=== PATIENT | male | born 1965 | race African-American/Black ===

== ENCOUNTER 2020-09-28 04:58 | Emergency (ER) | payer MEDICAID ==
[~2020-09-28] VITALS: Ht 182.9 cm; Wt 99.8 kg
[2020-09-28] MEDS ORDERED: HYDROcodone-ACET 10/325MG TAB PO ONE (08:00)
[2020-09-28 08:25] VITALS: BP 157/98
== END 2020-09-28 09:08 | disposition home or self-care (01) ==
LOC: ER 04:58
DX: S22.41XA Multiple fractures of ribs, right side, initial encounter for closed fracture (principal); I10 Essential (primary) hypertension; F17.210 Nicotine dependence, cigarettes, uncomplicated; K59.00 Constipation, unspecified; X58.XXXA Exposure to other specified factors, initial encounter; Y93.89 Activity, other specified; Y92.89 Other specified places as the place of occurrence of the external cause; Y99.8 Other external cause status
CPT/HCPCS: 71101; 71250; 74176

== ENCOUNTER 2021-06-21 12:35 | Inpatient (IN) | payer MEDICAID ==
[~2021-06-21] VITALS: Ht 182.9 cm; Wt 114.2 kg
[2021-06-21] MEDS ORDERED: SODIUM CHLORIDE 0.9% 1,000 ML IVB ONE (13:45)
[2021-06-21 14:08] LABS: Basophils # (auto) 0 10 ^3/uL (0-0.2); Eosinophils # (auto) 0 10 ^3/uL (0-0.8); Eosinophils % (auto) 0.1 % (0.0-7.0); Hemoglobin 13.6 g/dL (13.5-17.5); Lymphocytes # (auto) 0.9 10 ^3/uL (0.4-5.4); Monocytes # (auto) 0.4 10 ^3/uL (0-1.3); Monocytes % (auto) 5.1 % (0.0-12.0); Neutrophils # (auto) 6.9 10 ^3/uL (1.6-8.6); Nucleated Red Blood Cells % 0.7 %; White Blood Cell 8.2 10^3/uL (4.4-10.8)
[2021-06-21 14:10] LABS: Basophils % (auto) 0.5 % (0.0-2.0); Lymphocytes % (auto) 10.8 % (10.0-50.0); Mean Corpuscular Hemoglobin 26.2 pg (28.0-32.0); Mean Corpuscular Hgb Conc. 32.4 g/dL (32.0-36.0); Mean Corpuscular Volume 80.7 fL (80.0-100.0); Neutrophils % (auto) 83.5 % (37.0-80.0); Red Cell Distribution Width 15.1 % (11.8-14.3)
[2021-06-21 14:15] LABS: INR 1.32 (0.9-1.15); Partial Thromboplastin Time 33.2 sec (23.6-33.0)
[2021-06-21 14:21] LABS: Albumin 2.2 g/dL (3.4-5.0); Calcium 8.2 mg/dL (8.5-10.1); Magnesium 2.6 mg/dL (1.6-2.6); Potassium 3.8 mmol/L (3.5-5.1)
[2021-06-21] MEDS ORDERED: IOHEXOL 350 MG/ML 100ML IJ ONE (14:24)
[2021-06-21 14:27] LABS: BUN/Creatinine Ratio 15.8; Total Protein 7.1 g/dL (6.4-8.2)
[2021-06-21] MEDS ORDERED: HYDROCORTISONE SOD SUCC 100 MG/2ML INJ VIAL IV ONE (15:00)
[2021-06-21] MEDS ORDERED: PIPERACILLIN-TAZO 4.5GM 100 ML IV ONE (15:15)
[2021-06-21] MEDS ORDERED: VANCOMYCIN 1,500 MG in D5W 5% 250 ML IV ONE (15:15)
[2021-06-21 15:49] LABS: Urine Bacteria FEW /hpf (None Seen); Urine Blood TRACE /uL (Negative); Urine Hyaline Cast MANY /lpf (0 - 2); Urine Mucus FEW (None Seen); Urine Specific Gravity 1.032 (1.001-1.035); Urine WBC 13 /hpf (0 - 3)
[2021-06-21] MEDS ORDERED: HEPARIN SODIUM (PORCINE) 5000 UNITS/ML 1ML VIAL IV ONE (16:00)
[2021-06-21 16:22] LABS: Lactic Acid w/Reflex 4.6 mmol/L (0.4-2.0)
[2021-06-21] MEDS ORDERED: SODIUM CHLORIDE 0.9% 2,200 ML IV ONE (16:30)
[2021-06-21] MEDS: LINEZOLID 600MG/300ML 300 ML IV SCH ×2 (16:45)
[2021-06-21] MEDS: HEPARIN DRIP/D5W 100UNITS/ML 250 ML IV SCH (16:54)
[2021-06-21] MEDS ORDERED: MORPHINE SULFATE INJECTION 2 MG/ML SYRG IV PRN ×3 (17:00)
[2021-06-21] MEDS ORDERED: ALBUTEROL SULF 2.5 MG/0.5ML(0.5%) NEB SOLN NEB PRN (17:00)
[2021-06-21] MEDS: SODIUM CHLORIDE 0.9% 1,000 ML IV SCH (17:00)
[2021-06-21] MEDS ORDERED: PROMETHAZINE HCL 25 MG/ML 1ML IV PRN (17:00)
[2021-06-21] MEDS ORDERED: LACTULOSE 20Gm/30ML SOLN PO PRN (17:00)
[2021-06-21] MEDS ORDERED: NITROGLYCERIN 0.4 MG SL TAB SL PRN (17:00)
[2021-06-21] MEDS: PIPERACILLIN-TAZOB 2.25GM 50 ML IV SCH (17:29)
[2021-06-21 17:39] LABS: Amphetamine Screen, Urine POSITIVE (NEGATIVE); Barbiturate Scree,Urine NEGATIVE (NEGATIVE); Benzodiazephine Screen, Urine NEGATIVE (NEGATIVE); Cannabinoid Screen, Urine NEGATIVE (NEGATIVE); Cocaine Screen, Urine NEGATIVE (NEGATIVE); Opiate Scree,Urine NEGATIVE (NEGATIVE); Phencyclidine Screen, Urine NEGATIVE (NEGATIVE)
[2021-06-21] MEDS ORDERED: SUCCINYLCHOLINE CHLORIDE 20 MG/ML 10ML VIAL IV ONE ×2 (18:07→18:15)
[2021-06-21] MEDS ORDERED: MIDAZOLAM DRIP 50 mg/50mL 50 ML IV ONE (18:07)
[2021-06-21] MEDS ORDERED: ETOMIDATE (2MG/ML) 20ML VIAL IV ONE ×2 (18:07→18:15)
[2021-06-21] MEDS: PROPOFOL 100 ML IV SCH (18:45)
[2021-06-21 19:47] LABS: Hematocrit 42.3 % (41.0-53.0); Hemoglobin 13.9 g/dL (13.5-17.5)
[2021-06-21] MEDS: fentaNYL Drip 2500mCg/250mlNS 250 ML IV SCH (20:20)
[2021-06-21] MEDS ORDERED: NOREPINEPHRINE 8 MG/250ML KIT 250 ML IV ONE (20:23)
[2021-06-21] MEDS: MIDAZOLAM DRIP 50 mg/50mL 50 ML IV SCH (21:42)
[2021-06-21] MEDS: ALBUTEROL SULF 2.5 MG/0.5ML(0.5%) NEB SOLN NEB SCH (21:43)
[2021-06-21] MEDS: IPRATROPIUM BROM 0.5 MG/2.5ML INH SOL NEB SCH (21:43)
[2021-06-21 22:06] VITALS: BP 95/55
[2021-06-22] VITALS (67 sets, daily range): BP systolic 74–200; BP diastolic 41–178
[2021-06-22] MEDS: PIPERACILLIN-TAZOB 2.25GM 50 ML IV SCH ×4 (00:23→19:20)
[2021-06-22] MEDS: NOREPINEPHRINE 8 MG/250ML KIT 250 ML IV SCH ×2 (00:45→14:30)
[2021-06-22] MEDS: ALBUTEROL SULF 2.5 MG/0.5ML(0.5%) NEB SOLN NEB SCH ×4 (01:48→18:21)
[2021-06-22] MEDS: IPRATROPIUM BROM 0.5 MG/2.5ML INH SOL NEB SCH ×4 (01:48→18:21)
[2021-06-22 02:23] LABS: Hematocrit 42.4 % (41.0-53.0); Hemoglobin 13.5 g/dL (13.5-17.5)
[2021-06-22] MEDS: SODIUM CHLORIDE 0.9% 1,000 ML IV SCH ×2 (03:00→11:19)
[2021-06-22] MEDS: MIDAZOLAM DRIP 50 mg/50mL 50 ML IV SCH ×3 (03:19→20:48)
[2021-06-22] MEDS ORDERED: SODIUM BICARBONATE 8.4 % INJ 50ML VIAL IV ONE ×2 (03:30→10:30)
[2021-06-22 05:03] LABS: Basophils # (auto) 0 10 ^3/uL (0-0.2); Basophils % (auto) 0.2 % (0.0-2.0); Eosinophils # (auto) 0 10 ^3/uL (0-0.8); Eosinophils % (auto) 0.1 % (0.0-7.0); Hematocrit 40.6 % (41.0-53.0); Hemoglobin 12.8 g/dL (13.5-17.5); Lymphocytes # (auto) 0.7 10 ^3/uL (0.4-5.4); Mean Corpuscular Hemoglobin 25.9 pg (28.0-32.0); Mean Corpuscular Hgb Conc. 31.5 g/dL (32.0-36.0); Mean Corpuscular Volume 82.1 fL (80.0-100.0); Monocytes # (auto) 0.4 10 ^3/uL (0-1.3); Monocytes % (auto) 2.8 % (0.0-12.0); Neutrophils # (auto) 13.2 10 ^3/uL (1.6-8.6); Neutrophils % (auto) 91.9 % (37.0-80.0); Red Blood Cells 4.95 10^6/uL (4.5-5.90); Red Cell Distribution Width 15.8 % (11.8-14.3); White Blood Cell 14.3 10^3/uL (4.4-10.8)
[2021-06-22 05:23] LABS: Lactic Acid w/Reflex 9.5 mmol/L (0.4-2.0)
[2021-06-22 06:13] LABS: Potassium 5.3 mmol/L (3.5-5.1)
[2021-06-22 06:37] LABS: Albumin 1.7 g/dL (3.4-5.0); BUN/Creatinine Ratio 13.4; Bilirubin, Total 3.2 mg/dL (0.2-1.0)
[2021-06-22] MEDS: LINEZOLID 600MG/300ML 300 ML IV SCH ×2 (10:00→22:07)
[2021-06-22] MEDS: ASPirin 81 mg TAB PO SCH (10:00)
[2021-06-22] MEDS: AZITHROMYCIN 500MG/ 250ML 250 ML IV SCH (11:19)
[2021-06-22] MEDS: PANTOPRAZOLE 40 MG TAB PO SCH (11:20)
[2021-06-22] MEDS: DOPamine 1600MCG/ML D5W 250 ML IV SCH (12:59)
[2021-06-22] MEDS: SODIUM BICARBONATE 50ML VIAL 100 ML in SOD CHL 0.45% 1,000 ML IV SCH ×2 (13:56→20:49)
[2021-06-22] MEDS: fentaNYL Drip 2500mCg/250mlNS 250 ML IV SCH (14:31)
[2021-06-22 15:52] LABS: INR 2.4 (0.9-1.15)
[2021-06-22] MEDS: PROPOFOL 100 ML IV SCH (19:54)
[2021-06-22] MEDS: HEPARIN DRIP/D5W 100UNITS/ML 250 ML IV SCH (22:07)
[2021-06-22 23:07] LABS: INR 1.94 (0.9-1.15); Partial Thromboplastin Time 51.5 sec (23.6-33.0)
[2021-06-23] VITALS (103 sets, daily range): BP systolic 71–144; BP diastolic 39–97
[2021-06-23] MEDS: NOREPINEPHRINE 8 MG/250ML KIT 250 ML IV SCH ×2 (00:25→21:00)
[2021-06-23] MEDS: PIPERACILLIN-TAZOB 2.25GM 50 ML IV SCH ×4 (00:28→18:10)
[2021-06-23] MEDS: MIDAZOLAM DRIP 50 mg/50mL 50 ML IV SCH ×4 (01:46→20:30)
[2021-06-23] MEDS: IPRATROPIUM BROM 0.5 MG/2.5ML INH SOL NEB SCH ×4 (01:55→18:00)
[2021-06-23] MEDS: ALBUTEROL SULF 2.5 MG/0.5ML(0.5%) NEB SOLN NEB SCH ×4 (01:55→18:00)
[2021-06-23] MEDS: SODIUM BICARBONATE 50ML VIAL 100 ML in SOD CHL 0.45% 1,000 ML IV SCH ×3 (04:31→19:27)
[2021-06-23 04:40] LABS: Hemoglobin 11.9 g/dL (13.5-17.5); White Blood Cell 7.6 10^3/uL (4.4-10.8)
[2021-06-23 04:41] LABS: Hematocrit 36.3 % (41.0-53.0); Mean Corpuscular Hgb Conc. 32.9 g/dL (32.0-36.0); Mean Corpuscular Volume 82.2 fL (80.0-100.0); Red Blood Cells 4.41 10^6/uL (4.5-5.90); Red Cell Distribution Width 16.1 % (11.8-14.3)
[2021-06-23 04:54] LABS: INR 1.97 (0.9-1.15); Partial Thromboplastin Time 55.3 sec (23.6-33.0)
[2021-06-23 04:56] LABS: Albumin 1.6 g/dL (3.4-5.0); BUN/Creatinine Ratio 10.9; Potassium 4.6 mmol/L (3.5-5.1)
[2021-06-23 05:05] LABS: Bilirubin, Total 3.4 mg/dL (0.2-1.0); Total Protein 5.3 g/dL (6.4-8.2)
[2021-06-23] MEDS: fentaNYL Drip 2500mCg/250mlNS 250 ML IV SCH ×2 (05:16→18:07)
[2021-06-23 05:31] LABS: Basophils % (manual) 0 (0.0-2.0); Blast Cells 0; Metamyelocytes % 0; Myelocytes % 0; Promyelocytes % 0; Reactive Lymphocytes 0
[2021-06-23 07:14] LABS: Calcium 5.6 mg/dL (8.5-10.1)
[2021-06-23 08:35] LABS: Band Neutrophils % (manual) 5; Eosinophils % (manual) 1 (0-7); Lymphocytes % (manual) 10 (10.0-50.0); Monocytes % (manual) 4 (0-12)
[2021-06-23] MEDS ORDERED: BUMETANIDE 2.5mg/10ml (0.25 mg/ml) INJ IV ONE (09:45)
[2021-06-23] MEDS: PANTOPRAZOLE 40 MG TAB PO SCH (10:00)
[2021-06-23] MEDS: AZITHROMYCIN 500MG/ 250ML 250 ML IV SCH (10:20)
[2021-06-23] MEDS: ASPirin 81 mg TAB PO SCH (10:22)
[2021-06-23] MEDS: CHOLECALCIFEROL (VITD3) 2,000 UNIT CAP/TAB PO SCH (10:23)
[2021-06-23] MEDS: ZINC SULFATE 220mg CAP or TAB PO SCH (10:23)
[2021-06-23] MEDS: HEPARIN DRIP/D5W 100UNITS/ML 250 ML IV SCH (10:48)
[2021-06-23 11:38] LABS: Basophils # (auto) 0 10 ^3/uL (0-0.2); Basophils % (auto) 0.7 % (0.0-2.0); Eosinophils # (auto) 0 10 ^3/uL (0-0.8); Eosinophils % (auto) 0.3 % (0.0-7.0); Hematocrit 36.3 % (41.0-53.0); Hemoglobin 11.6 g/dL (13.5-17.5); Lymphocytes # (auto) 0.7 10 ^3/uL (0.4-5.4); Lymphocytes % (auto) 12.4 % (10.0-50.0); Mean Corpuscular Hemoglobin 27.1 pg (28.0-32.0); Mean Corpuscular Hgb Conc. 31.9 g/dL (32.0-36.0); Mean Corpuscular Volume 84.8 fL (80.0-100.0); Monocytes # (auto) 0.1 10 ^3/uL (0-1.3); Monocytes % (auto) 2.6 % (0.0-12.0); Neutrophils # (auto) 4.6 10 ^3/uL (1.6-8.6); Red Blood Cells 4.28 10^6/uL (4.5-5.90); Red Cell Distribution Width 15.8 % (11.8-14.3); White Blood Cell 5.4 10^3/uL (4.4-10.8)
[2021-06-23 11:39] LABS: Nucleated Red Blood Cells % 4.3 %
[2021-06-23 11:53] LABS: Lactic Acid w/Reflex 5.8 mmol/L (0.4-2.0)
[2021-06-23 11:57] LABS: Potassium 4.5 mmol/L (3.5-5.1)
[2021-06-23 12:15] LABS: INR 2.11 (0.9-1.15)
[2021-06-23 12:16] LABS: Partial Thromboplastin Time > 139.0 sec (23.6-33.0)
[2021-06-23 12:19] LABS: Thyroid Stimulating Hormone 0.09 uIU/mL (0.358-3.74)
[2021-06-23 12:38] LABS: Albumin 1.5 g/dL (3.4-5.0); BUN/Creatinine Ratio 10.5; Bilirubin, Total 3.9 mg/dL (0.2-1.0); CRP High Sensitivity 16.6 mg/dL (< 0.3); Magnesium 2.5 mg/dL (1.6-2.6); Total Protein 5.1 g/dL (6.4-8.2)
[2021-06-23 13:24] LABS: Calcium 5.2 mg/dL (8.5-10.1)
[2021-06-23 13:26] LABS: Lactate Dehydrogenase > 4000 U/L (87-241)
[2021-06-23 14:14] LABS: INR 2.13 (0.9-1.15); Partial Thromboplastin Time 56.5 sec (23.6-33.0)
[2021-06-23] MEDS: LINEZOLID 600MG/300ML 300 ML IV SCH (15:57)
[2021-06-23] MEDS ORDERED: CALCIUM GLUC 1,000mg/50ml-NS 50 ML IV ONE (16:15)
[2021-06-23] MEDS ORDERED: ALBUMIN 25% 100 ML IV ONE (16:15)
[2021-06-23] MEDS: DexAMETHasone SOD PHOS 10MG/1ML VIAL INJ IV SCH (16:29)
[2021-06-23] MEDS ORDERED: TOCILIZUMAB 400 MG in SODIUM CHL 0.9% 80 ML IV ONE (17:00)
[2021-06-23] MEDS: FUROSEMIDE 100 MG/10ML VIAL IV SCH (18:10)
[2021-06-23] MEDS: PROPOFOL 100 ML IV SCH (18:45)
[2021-06-23] MEDS: DOPamine 1600MCG/ML D5W 250 ML IV SCH (23:02)
[2021-06-24] VITALS (98 sets, daily range): BP systolic 79–167; BP diastolic 47–105
[2021-06-24] MEDS: PIPERACILLIN-TAZOB 2.25GM 50 ML IV SCH ×4 (00:30→17:55)
[2021-06-24] MEDS: ALBUTEROL SULF 2.5 MG/0.5ML(0.5%) NEB SOLN NEB SCH ×4 (00:52→18:52)
[2021-06-24] MEDS: IPRATROPIUM BROM 0.5 MG/2.5ML INH SOL NEB SCH ×4 (00:53→18:52)
[2021-06-24] MEDS: HEPARIN DRIP/D5W 100UNITS/ML 250 ML IV SCH ×2 (01:27→14:28)
[2021-06-24] MEDS: SODIUM BICARBONATE 50ML VIAL 100 ML in SOD CHL 0.45% 1,000 ML IV SCH ×4 (03:45→19:11)
[2021-06-24] MEDS: fentaNYL Drip 2500mCg/250mlNS 250 ML IV SCH ×2 (04:38→17:55)
[2021-06-24 05:42] LABS: Hematocrit 35.3 % (41.0-53.0); Hemoglobin 11.7 g/dL (13.5-17.5); Mean Corpuscular Hemoglobin 28.2 pg (28.0-32.0); Mean Corpuscular Hgb Conc. 33.1 g/dL (32.0-36.0); Mean Corpuscular Volume 85.3 fL (80.0-100.0); Red Blood Cells 4.14 10^6/uL (4.5-5.90); Red Cell Distribution Width 16.3 % (11.8-14.3); White Blood Cell 9.8 10^3/uL (4.4-10.8)
[2021-06-24 05:57] LABS: Albumin 1.9 g/dL (3.4-5.0); INR 2.29 (0.9-1.15); Partial Thromboplastin Time 63.8 sec (23.6-33.0)
[2021-06-24 06:13] LABS: Total Protein 5.6 g/dL (6.4-8.2)
[2021-06-24 06:24] LABS: Basophils % (manual) 0 (0.0-2.0); Blast Cells 0; Promyelocytes % 0; Reactive Lymphocytes 0
[2021-06-24 06:26] LABS: Calcium 5.1 mg/dL (8.5-10.1); Potassium 5.8 mmol/L (3.5-5.1)
[2021-06-24] MEDS: LINEZOLID 600MG/300ML 300 ML IV SCH ×2 (06:27→16:26)
[2021-06-24] MEDS: FUROSEMIDE 100 MG/10ML VIAL IV SCH ×2 (07:03→17:54)
[2021-06-24] MEDS ORDERED: SODIUM BICARBONATE 8.4 % INJ 50ML VIAL IV ONE ×2 (07:15→12:15)
[2021-06-24] MEDS ORDERED: InsuLIN REG 1unit/0.01ml Soln (100units/ml) IV ONE ×3 (07:15→17:30)
[2021-06-24] MEDS ORDERED: SODIUM ZIRCONIUM CYCL 10 GM PAK PO ONE (07:15)
[2021-06-24] MEDS ORDERED: DEXTROSE (50%) 50ML SYRG IV ONE ×3 (07:15→17:30)
[2021-06-24] MEDS ORDERED: CALCIUM GLUC 1,000mg/50ml-NS 50 ML IV ONE ×4 (07:15→12:15)
[2021-06-24] MEDS ORDERED: SODIUM BICARBONATE 8.4% INJ 50ML SYRINGE ONE (07:41)
[2021-06-24] MEDS ORDERED: DEXTROSE 50% SYRINGE 50 ML IV ONE (07:42)
[2021-06-24] MEDS ORDERED: ALBUTEROL SULF 2.5 MG/0.5ML(0.5%) NEB SOLN NEB ONE (08:00)
[2021-06-24 08:06] LABS: Band Neutrophils % (manual) 19; Eosinophils % (manual) 1 (0-7); Lymphocytes % (manual) 2 (10.0-50.0); Metamyelocytes % 1; Monocytes % (manual) 3 (0-12); Myelocytes % 1
[2021-06-24] MEDS: AZITHROMYCIN 500MG/ 250ML 250 ML IV SCH (09:18)
[2021-06-24] MEDS: MIDAZOLAM DRIP 50 mg/50mL 50 ML IV SCH ×3 (09:18→19:00)
[2021-06-24] MEDS ORDERED: FUROSEMIDE 100 MG/10ML VIAL IV SCH (10:00)
[2021-06-24] MEDS ORDERED: TOCILIZUMAB 400 MG in SODIUM CHL 0.9% 80 ML IV ONE (10:00)
[2021-06-24] MEDS: ASPirin 81 mg TAB PO SCH (10:12)
[2021-06-24] MEDS: DexAMETHasone SOD PHOS 10MG/1ML VIAL INJ IV SCH (10:12)
[2021-06-24] MEDS: CHOLECALCIFEROL (VITD3) 2,000 UNIT CAP/TAB PO SCH (10:12)
[2021-06-24] MEDS: ZINC SULFATE 220mg CAP or TAB PO SCH (10:12)
[2021-06-24] MEDS: PANTOPRAZOLE 40 MG/10 ML VIAL INJ IV SCH (10:12)
[2021-06-24] MEDS: DOPamine 1600MCG/ML D5W 250 ML IV SCH (12:30)
[2021-06-24] MEDS ORDERED: HEPARIN 1,000 UNITS/ml 1ML VIAL ONE (14:10)
[2021-06-24] MEDS ORDERED: HEPARIN 1,000 UNITS/ml 1ML VIAL IV ONE (14:15)
[2021-06-24] MEDS: SODIUM ZIRCONIUM CYCL 10 GM PAK PO SCH ×2 (14:28→22:54)
[2021-06-24 16:47] LABS: BUN/Creatinine Ratio 9.8
[2021-06-24 16:59] LABS: Calcium 5.1 mg/dL (8.5-10.1)
[2021-06-24] MEDS: PROPOFOL 100 ML IV SCH (18:45)
[2021-06-25] VITALS (99 sets, daily range): BP systolic 63–164; BP diastolic 32–102
[2021-06-25] MEDS: PIPERACILLIN-TAZOB 2.25GM 50 ML IV SCH ×5 (00:17→23:43)
[2021-06-25] MEDS: IPRATROPIUM BROM 0.5 MG/2.5ML INH SOL NEB SCH ×4 (02:33→18:41)
[2021-06-25] MEDS: SODIUM BICARBONATE 50ML VIAL 100 ML in SOD CHL 0.45% 1,000 ML IV SCH ×2 (02:33→10:05)
[2021-06-25] MEDS: ALBUTEROL SULF 2.5 MG/0.5ML(0.5%) NEB SOLN NEB SCH ×4 (02:33→18:41)
[2021-06-25] MEDS: NOREPINEPHRINE 8 MG/250ML KIT 250 ML IV SCH ×2 (02:35→06:04)
[2021-06-25] MEDS: LINEZOLID 600MG/300ML 300 ML IV SCH ×2 (03:48→16:16)
[2021-06-25] MEDS: MIDAZOLAM DRIP 50 mg/50mL 50 ML IV SCH ×3 (04:00→20:00)
[2021-06-25 04:34] LABS: Basophils # (auto) 0 10 ^3/uL (0-0.2); Basophils % (auto) 0.1 % (0.0-2.0); Eosinophils # (auto) 0 10 ^3/uL (0-0.8); Hematocrit 30.6 % (41.0-53.0); Hemoglobin 10.4 g/dL (13.5-17.5); Lymphocytes # (auto) 0.6 10 ^3/uL (0.4-5.4); Lymphocytes % (auto) 6.7 % (10.0-50.0); Mean Corpuscular Volume 82.3 fL (80.0-100.0); Monocytes # (auto) 0.3 10 ^3/uL (0-1.3); Monocytes % (auto) 3.2 % (0.0-12.0); Neutrophils # (auto) 8.1 10 ^3/uL (1.6-8.6); Red Blood Cells 3.72 10^6/uL (4.5-5.90); Red Cell Distribution Width 15.8 % (11.8-14.3)
[2021-06-25 04:53] LABS: Albumin 1.5 g/dL (3.4-5.0); Anion Gap 22 (5-15); Carbon Dioxide 22 mmol/L (21-32); Chloride 85 mmol/L (98-107); Glucose 211 mg/dL (74-106); Potassium 5.1 mmol/L (3.5-5.1); Sodium 129 mmol/L (136-145)
[2021-06-25 04:55] LABS: Nucleated Red Blood Cells % 4.1 %
[2021-06-25 05:09] LABS: Alanine Aminotransferase 3200 U/L (16-61); Alkaline Phosphatase 173 U/L (45-117); Aspartate Aminotransferase 3325 U/L (15-37); BUN/Creatinine Ratio 9.8; Bilirubin, Total 5.4 mg/dL (0.2-1.0); GFR African American 8 mL/min; GFR Non-African American 7 mL/min
[2021-06-25 05:22] LABS: Blood Urea Nitrogen 84 mg/dL (7-18)
[2021-06-25 05:44] LABS: INR 2.63 (0.9-1.15); Partial Thromboplastin Time 58.7 sec (23.6-33.0)
[2021-06-25 05:44] LABS: Calcium < 5.0 mg/dL (8.5-10.1)
[2021-06-25] MEDS: FUROSEMIDE 100 MG/10ML VIAL IV SCH (06:02)
[2021-06-25] MEDS: DOPamine 1600MCG/ML D5W 250 ML IV SCH (06:03)
[2021-06-25] MEDS: SODIUM ZIRCONIUM CYCL 10 GM PAK PO SCH ×3 (06:03→21:47)
[2021-06-25] MEDS: fentaNYL Drip 2500mCg/250mlNS 250 ML IV SCH ×2 (06:06→20:00)
[2021-06-25] MEDS ORDERED: SODIUM CHL 0.9% 1000 ML BAG XX ONE (07:00)
[2021-06-25] MEDS ORDERED: AMIODARONE HCL 150 MG in D5W 5% 100 ML IV ONE (07:30)
[2021-06-25] MEDS ORDERED: AMIODARONE 450mg/250ml AE 250 ML IV SCH (07:45)
[2021-06-25] MEDS: DexAMETHasone SOD PHOS 10MG/1ML VIAL INJ IV SCH (09:21)
[2021-06-25] MEDS: ASPirin 81 mg TAB PO SCH (09:21)
[2021-06-25] MEDS: CHOLECALCIFEROL (VITD3) 2,000 UNIT CAP/TAB PO SCH (09:21)
[2021-06-25] MEDS: PANTOPRAZOLE 40 MG/10 ML VIAL INJ IV SCH (09:21)
[2021-06-25] MEDS: CALCIUM ACETATE 667 MG CAP GT SCH ×3 (09:22→21:47)
[2021-06-25] MEDS: ZINC SULFATE 220mg CAP or TAB PO SCH (09:23)
[2021-06-25] MEDS: AZITHROMYCIN 500MG/ 250ML 250 ML IV SCH (12:10)
[2021-06-25] MEDS: AMIODARONE 450mg/250ml AE 250 ML IV SCH (15:00)
[2021-06-25] MEDS: HEPARIN DRIP/D5W 100UNITS/ML 250 ML IV SCH (16:18)
[2021-06-25] MEDS: PROPOFOL 100 ML IV SCH (18:45)
[2021-06-25 20:55] LABS: BUN/Creatinine Ratio 9.3; Potassium 4.7 mmol/L (3.5-5.1)
[2021-06-25] MEDS ORDERED: EPOETIN ALFA-EPBX 10,000 UNIT/1ML VIAL SC ONE ×2 (21:00)
[2021-06-25 21:07] LABS: Calcium 5.2 mg/dL (8.5-10.1)
[2021-06-26] VITALS (97 sets, daily range): BP systolic 101–159; BP diastolic 55–102
[2021-06-26] MEDS: ALBUTEROL SULF 2.5 MG/0.5ML(0.5%) NEB SOLN NEB SCH ×4 (00:25→18:17)
[2021-06-26] MEDS: IPRATROPIUM BROM 0.5 MG/2.5ML INH SOL NEB SCH ×4 (00:25→18:17)
[2021-06-26] MEDS: MIDAZOLAM DRIP 50 mg/50mL 50 ML IV SCH ×2 (01:56→19:30)
[2021-06-26] MEDS: LINEZOLID 600MG/300ML 300 ML IV SCH ×2 (03:49→15:14)
[2021-06-26 04:43] LABS: White Blood Cell 8.7 10^3/uL (4.4-10.8)
[2021-06-26 04:45] LABS: Hematocrit 34.2 % (41.0-53.0); Hemoglobin 11.1 g/dL (13.5-17.5); Mean Corpuscular Hemoglobin 26.4 pg (28.0-32.0); Mean Corpuscular Hgb Conc. 32.6 g/dL (32.0-36.0); Mean Corpuscular Volume 80.9 fL (80.0-100.0); Red Blood Cells 4.23 10^6/uL (4.5-5.90)
[2021-06-26 05:01] LABS: INR 2.32 (0.9-1.15); Partial Thromboplastin Time 64.6 sec (23.6-33.0)
[2021-06-26 05:05] LABS: Basophils % (manual) 0 (0.0-2.0); Blast Cells 0; Eosinophils % (manual) 0 (0-7); Myelocytes % 0; Promyelocytes % 0; Reactive Lymphocytes 0
[2021-06-26 05:08] LABS: Albumin 1.7 g/dL (3.4-5.0)
[2021-06-26 05:19] LABS: BUN/Creatinine Ratio 9.4; Bilirubin, Total 5.1 mg/dL (0.2-1.0); Total Protein 5.2 g/dL (6.4-8.2)
[2021-06-26] MEDS: AMIODARONE 450mg/250ml AE 250 ML IV SCH ×2 (05:35→19:45)
[2021-06-26] MEDS: PIPERACILLIN-TAZOB 2.25GM 50 ML IV SCH ×3 (05:36→19:02)
[2021-06-26] MEDS: CALCIUM ACETATE 667 MG CAP GT SCH ×3 (05:36→22:18)
[2021-06-26] MEDS: SODIUM ZIRCONIUM CYCL 10 GM PAK PO SCH ×3 (05:37→22:18)
[2021-06-26] MEDS: fentaNYL Drip 2500mCg/250mlNS 250 ML IV SCH ×2 (05:44→17:13)
[2021-06-26 05:45] LABS: Calcium 5.3 mg/dL (8.5-10.1)
[2021-06-26 06:54] LABS: Band Neutrophils % (manual) 32; Lymphocytes % (manual) 9 (10.0-50.0); Metamyelocytes % 2; Monocytes % (manual) 1 (0-12)
[2021-06-26] MEDS: ZINC SULFATE 220mg CAP or TAB PO SCH (07:53)
[2021-06-26] MEDS: ASPirin 81 mg TAB PO SCH (07:53)
[2021-06-26] MEDS: CHOLECALCIFEROL (VITD3) 2,000 UNIT CAP/TAB PO SCH (07:54)
[2021-06-26] MEDS: DexAMETHasone SOD PHOS 10MG/1ML VIAL INJ IV SCH (08:59)
[2021-06-26] MEDS: PANTOPRAZOLE 40 MG/10 ML VIAL INJ IV SCH (08:59)
[2021-06-26] MEDS: FUROSEMIDE 100 MG/10ML VIAL IV SCH (08:59)
[2021-06-26] MEDS ORDERED: SODIUM BICARBONATE 8.4 % INJ 50ML VIAL IV ONE (09:00)
[2021-06-26] MEDS ORDERED: SODIUM CHL 0.9% 1000 ML BAG XX ONE (09:15)
[2021-06-26] MEDS: AZITHROMYCIN 500MG/ 250ML 250 ML IV SCH (10:00)
[2021-06-26] MEDS: HEPARIN DRIP/D5W 100UNITS/ML 250 ML IV SCH (10:24)
[2021-06-26] MEDS: DOPamine 1600MCG/ML D5W 250 ML IV SCH (11:44)
[2021-06-26 13:17] LABS: Hepatitis A Ab IgM Negative
[2021-06-26 13:37] LABS: Hepatitis B Surface Antigen Negative (Negative)
[2021-06-26 13:41] LABS: Hepatitis B Core IgM Negative
[2021-06-26 14:00] LABS: Hepatitis C Antibody Negative (Negative)
[2021-06-26] MEDS: PROPOFOL 100 ML IV SCH (18:45)
[2021-06-27] VITALS (68 sets, daily range): BP systolic 93–149; BP diastolic 37–99
[2021-06-27] MEDS: IPRATROPIUM BROM 0.5 MG/2.5ML INH SOL NEB SCH ×4 (00:04→18:26)
[2021-06-27] MEDS: ALBUTEROL SULF 2.5 MG/0.5ML(0.5%) NEB SOLN NEB SCH ×4 (00:04→18:26)
[2021-06-27] MEDS: NOREPINEPHRINE 8 MG/250ML KIT 250 ML IV SCH (00:45)
[2021-06-27] MEDS: LINEZOLID 600MG/300ML 300 ML IV SCH ×2 (03:33→16:00)
[2021-06-27 04:45] LABS: Basophils # (auto) 0 10 ^3/uL (0-0.2); Eosinophils # (auto) 0 10 ^3/uL (0-0.8); Hemoglobin 11.7 g/dL (13.5-17.5)
[2021-06-27 04:47] LABS: Basophils % (auto) 0.1 % (0.0-2.0); Eosinophils % (auto) 0.1 % (0.0-7.0); Lymphocytes # (auto) 0.7 10 ^3/uL (0.4-5.4); Lymphocytes % (auto) 7.1 % (10.0-50.0); Mean Corpuscular Hemoglobin 27.1 pg (28.0-32.0); Mean Corpuscular Hgb Conc. 33.5 g/dL (32.0-36.0); Mean Corpuscular Volume 80.8 fL (80.0-100.0); Monocytes # (auto) 0.4 10 ^3/uL (0-1.3); Monocytes % (auto) 4.5 % (0.0-12.0); Neutrophils # (auto) 8.6 10 ^3/uL (1.6-8.6); Neutrophils % (auto) 88.2 % (37.0-80.0); Red Blood Cells 4.34 10^6/uL (4.5-5.90); Red Cell Distribution Width 15.3 % (11.8-14.3); White Blood Cell 9.7 10^3/uL (4.4-10.8)
[2021-06-27 04:56] LABS: Nucleated Red Blood Cells % 6.9 %
[2021-06-27 05:03] LABS: Albumin 1.6 g/dL (3.4-5.0); Potassium 4.6 mmol/L (3.5-5.1)
[2021-06-27 05:06] LABS: INR 2.23 (0.9-1.15)
[2021-06-27 05:13] LABS: BUN/Creatinine Ratio 10.1; Total Protein 5.1 g/dL (6.4-8.2)
[2021-06-27 05:19] LABS: Partial Thromboplastin Time 85.1 sec (23.6-33.0)
[2021-06-27 05:30] LABS: Calcium 5.5 mg/dL (8.5-10.1)
[2021-06-27] MEDS: SODIUM ZIRCONIUM CYCL 10 GM PAK PO SCH ×3 (06:00→23:18)
[2021-06-27] MEDS: fentaNYL Drip 2500mCg/250mlNS 250 ML IV SCH ×2 (06:00→23:16)
[2021-06-27] MEDS: CALCIUM ACETATE 667 MG CAP GT SCH ×3 (06:00→23:17)
[2021-06-27] MEDS: PIPERACILLIN-TAZOB 2.25GM 50 ML IV SCH ×4 (06:00→18:18)
[2021-06-27] MEDS: DexAMETHasone SOD PHOS 10MG/1ML VIAL INJ IV SCH (10:00)
[2021-06-27] MEDS: CHOLECALCIFEROL (VITD3) 2,000 UNIT CAP/TAB PO SCH (10:00)
[2021-06-27] MEDS: ASPirin 81 mg TAB PO SCH (10:00)
[2021-06-27] MEDS: AZITHROMYCIN 500MG/ 250ML 250 ML IV SCH (10:00)
[2021-06-27] MEDS: PANTOPRAZOLE 40 MG/10 ML VIAL INJ IV SCH (10:00)
[2021-06-27] MEDS: ZINC SULFATE 220mg CAP or TAB PO SCH (10:00)
[2021-06-27] MEDS: FUROSEMIDE 100 MG/10ML VIAL IV SCH (10:00)
[2021-06-27 12:18] LABS: INR 2.2 (0.9-1.15); Partial Thromboplastin Time 68.8 sec (23.6-33.0)
[2021-06-27] MEDS: DOPamine 1600MCG/ML D5W 250 ML IV SCH ×2 (12:30→20:00)
[2021-06-27] MEDS: HEPARIN DRIP/D5W 100UNITS/ML 250 ML IV SCH (15:31)
[2021-06-27] MEDS: PROPOFOL 100 ML IV SCH (18:19)
[2021-06-27] MEDS: MIDAZOLAM DRIP 50 mg/50mL 50 ML IV SCH (20:00)
[2021-06-27] MEDS: Nepro With Carb Steady 1 Liter Bottle GT SCH (21:00)
[2021-06-27 22:50] LABS: INR 2.1 (0.9-1.15); Partial Thromboplastin Time 56.6 sec (23.6-33.0)
[2021-06-27] MEDS: AMIODARONE HCL 200 MG TAB PO SCH (23:18)
[2021-06-28] VITALS (66 sets, daily range): BP systolic 103–140; BP diastolic 58–88
[2021-06-28] MEDS: NOREPINEPHRINE 8 MG/250ML KIT 250 ML IV SCH (00:45)
[2021-06-28] MEDS: HEPARIN DRIP/D5W 100UNITS/ML 250 ML IV SCH ×2 (02:00→05:00)
[2021-06-28] MEDS: LINEZOLID 600MG/300ML 300 ML IV SCH ×2 (04:00→16:00)
[2021-06-28] MEDS: SODIUM ZIRCONIUM CYCL 10 GM PAK PO SCH ×3 (06:00→22:37)
[2021-06-28] MEDS: PIPERACILLIN-TAZOB 2.25GM 50 ML IV SCH ×4 (06:00→17:45)
[2021-06-28] MEDS: CALCIUM ACETATE 667 MG CAP GT SCH ×3 (06:00→22:36)
[2021-06-28] MEDS ORDERED: SODIUM CHL 0.9% 1000 ML BAG XX ONE (07:00)
[2021-06-28 09:53] LABS: INR 1.96 (0.9-1.15); Partial Thromboplastin Time 57.4 sec (23.6-33.0)
[2021-06-28 09:54] LABS: BUN/Creatinine Ratio 11.5; Potassium 5.3 mmol/L (3.5-5.1)
[2021-06-28] MEDS: AMIODARONE HCL 200 MG TAB PO SCH ×2 (10:00→22:37)
[2021-06-28] MEDS: AZITHROMYCIN 500MG/ 250ML 250 ML IV SCH (10:00)
[2021-06-28] MEDS: DexAMETHasone SOD PHOS 10MG/1ML VIAL INJ IV SCH (10:00)
[2021-06-28] MEDS: CHOLECALCIFEROL (VITD3) 2,000 UNIT CAP/TAB PO SCH (10:00)
[2021-06-28] MEDS: ZINC SULFATE 220mg CAP or TAB PO SCH (10:00)
[2021-06-28] MEDS: FUROSEMIDE 100 MG/10ML VIAL IV SCH (10:00)
[2021-06-28] MEDS: PANTOPRAZOLE 40 MG/10 ML VIAL INJ IV SCH (10:00)
[2021-06-28] MEDS: ASPirin 81 mg TAB PO SCH (10:00)
[2021-06-28] MEDS: ALBUTEROL SULF 2.5 MG/0.5ML(0.5%) NEB SOLN NEB SCH ×4 (11:25→18:39)
[2021-06-28] MEDS: IPRATROPIUM BROM 0.5 MG/2.5ML INH SOL NEB SCH ×4 (11:25→18:39)
[2021-06-28] MEDS: PROPOFOL 100 ML IV SCH (17:17)
[2021-06-29] VITALS (100 sets, daily range): BP systolic 113–166; BP diastolic 76–104
[2021-06-29] MEDS: PIPERACILLIN-TAZOB 2.25GM 50 ML IV SCH ×4 (00:51→18:00)
[2021-06-29] MEDS: ALBUTEROL SULF 2.5 MG/0.5ML(0.5%) NEB SOLN NEB SCH ×4 (01:15→18:34)
[2021-06-29] MEDS: IPRATROPIUM BROM 0.5 MG/2.5ML INH SOL NEB SCH ×4 (01:15→18:34)
[2021-06-29] MEDS: MIDAZOLAM DRIP 50 mg/50mL 50 ML IV SCH ×2 (02:00→19:00)
[2021-06-29] MEDS: DOPamine 1600MCG/ML D5W 250 ML IV SCH (02:00)
[2021-06-29] MEDS: fentaNYL Drip 2500mCg/250mlNS 250 ML IV SCH (02:00)
[2021-06-29] MEDS: Nepro With Carb Steady 1 Liter Bottle GT SCH ×2 (02:57→20:00)
[2021-06-29] MEDS: LINEZOLID 600MG/300ML 300 ML IV SCH ×2 (03:30→16:00)
[2021-06-29 04:08] LABS: White Blood Cell 14.2 10^3/uL (4.4-10.8)
[2021-06-29 04:11] LABS: Hematocrit 38.6 % (41.0-53.0); Hemoglobin 12.5 g/dL (13.5-17.5); Mean Corpuscular Hemoglobin 25.9 pg (28.0-32.0); Mean Corpuscular Hgb Conc. 32.5 g/dL (32.0-36.0); Mean Corpuscular Volume 79.8 fL (80.0-100.0); Red Blood Cells 4.84 10^6/uL (4.5-5.90); Red Cell Distribution Width 14.9 % (11.8-14.3)
[2021-06-29 05:14] LABS: Basophils % (manual) 0 (0.0-2.0); Blast Cells 0; Eosinophils % (manual) 0 (0-7); Metamyelocytes % 0; Myelocytes % 0; Promyelocytes % 0; Reactive Lymphocytes 0
[2021-06-29] MEDS: CALCIUM ACETATE 667 MG CAP GT SCH ×3 (06:00→23:05)
[2021-06-29] MEDS: SODIUM ZIRCONIUM CYCL 10 GM PAK PO SCH ×3 (06:00→23:04)
[2021-06-29 06:27] LABS: Band Neutrophils % (manual) 6; Lymphocytes % (manual) 3 (10.0-50.0); Monocytes % (manual) 4 (0-12)
[2021-06-29 08:14] LABS: INR 1.96 (0.9-1.15); Partial Thromboplastin Time 59.4 sec (23.6-33.0)
[2021-06-29] MEDS: NOREPINEPHRINE 8 MG/250ML KIT 250 ML IV SCH (08:48)
[2021-06-29] MEDS: DexAMETHasone SOD PHOS 10MG/1ML VIAL INJ IV SCH (09:53)
[2021-06-29] MEDS: AZITHROMYCIN 500MG/ 250ML 250 ML IV SCH (09:55)
[2021-06-29] MEDS: PANTOPRAZOLE 40 MG/10 ML VIAL INJ IV SCH (09:55)
[2021-06-29] MEDS: ASPirin 81 mg TAB PO SCH (09:55)
[2021-06-29] MEDS: FUROSEMIDE 100 MG/10ML VIAL IV SCH (09:55)
[2021-06-29] MEDS: AMIODARONE HCL 200 MG TAB PO SCH ×2 (09:56→23:04)
[2021-06-29] MEDS: ZINC SULFATE 220mg CAP or TAB PO SCH (09:56)
[2021-06-29] MEDS: CHOLECALCIFEROL (VITD3) 2,000 UNIT CAP/TAB PO SCH (09:56)
[2021-06-29 12:29] LABS: Albumin 1.7 g/dL (3.4-5.0); Calcium 6.1 mg/dL (8.5-10.1); Potassium 5.2 mmol/L (3.5-5.1)
[2021-06-29 12:38] LABS: BUN/Creatinine Ratio 12.3; Bilirubin, Total 5.2 mg/dL (0.2-1.0); Total Protein 5.2 g/dL (6.4-8.2)
[2021-06-29] MEDS ORDERED: SODIUM BICARBONATE 8.4 % INJ 50ML VIAL IV ONE (15:30)
[2021-06-29] MEDS: HEPARIN DRIP/D5W 100UNITS/ML 250 ML IV SCH (15:30)
[2021-06-29] MEDS ORDERED: DEXTROSE (50%) 50ML SYRG IV ONE (15:45)
[2021-06-29] MEDS ORDERED: InsuLIN REG 1unit/0.01ml Soln (100units/ml) IV ONE (15:45)
[2021-06-29] MEDS ORDERED: CALCIUM GLUC 1,000mg/50ml-NS 50 ML IV ONE (15:45)
[2021-06-29] MEDS: PROPOFOL 100 ML IV SCH (18:45)
[2021-06-30] VITALS (96 sets, daily range): BP systolic 94–147; BP diastolic 42–98
[2021-06-30] MEDS: HEPARIN DRIP/D5W 100UNITS/ML 250 ML IV SCH (03:12)
[2021-06-30] MEDS: fentaNYL Drip 2500mCg/250mlNS 250 ML IV SCH (03:13)
[2021-06-30 04:26] LABS: Hemoglobin 11.9 g/dL (13.5-17.5); Red Cell Distribution Width 14.9 % (11.8-14.3); White Blood Cell 15.4 10^3/uL (4.4-10.8)
[2021-06-30 04:27] LABS: Hematocrit 35.5 % (41.0-53.0); Mean Corpuscular Hemoglobin 26.7 pg (28.0-32.0); Mean Corpuscular Hgb Conc. 33.7 g/dL (32.0-36.0); Mean Corpuscular Volume 79.2 fL (80.0-100.0); Red Blood Cells 4.48 10^6/uL (4.5-5.90)
[2021-06-30] MEDS: LINEZOLID 600MG/300ML 300 ML IV SCH ×2 (04:29→16:00)
[2021-06-30 04:33] LABS: Basophils % (manual) 0 (0.0-2.0); Blast Cells 0; Eosinophils % (manual) 0 (0-7); INR 1.71 (0.9-1.15); Metamyelocytes % 0; Myelocytes % 0; Partial Thromboplastin Time 64.3 sec (23.6-33.0); Promyelocytes % 0; Reactive Lymphocytes 0
[2021-06-30 04:43] LABS: BUN/Creatinine Ratio 12.5
[2021-06-30 04:56] LABS: Calcium 5.8 mg/dL (8.5-10.1); Potassium 6.1 mmol/L (3.5-5.1)
[2021-06-30 05:00] LABS: Band Neutrophils % (manual) 13; Lymphocytes % (manual) 1 (10.0-50.0); Monocytes % (manual) 1 (0-12)
[2021-06-30] MEDS: PIPERACILLIN-TAZOB 2.25GM 50 ML IV SCH ×4 (06:00→18:09)
[2021-06-30] MEDS: CALCIUM ACETATE 667 MG CAP GT SCH ×2 (06:00→14:10)
[2021-06-30] MEDS: SODIUM ZIRCONIUM CYCL 10 GM PAK PO SCH ×3 (06:00→22:00)
[2021-06-30] MEDS: IPRATROPIUM BROM 0.5 MG/2.5ML INH SOL NEB SCH ×4 (06:47→18:16)
[2021-06-30] MEDS: ALBUTEROL SULF 2.5 MG/0.5ML(0.5%) NEB SOLN NEB SCH ×4 (06:47→18:16)
[2021-06-30] MEDS ORDERED: SODIUM CHL 0.9% 1000 ML BAG XX ONE (07:00)
[2021-06-30] MEDS: NOREPINEPHRINE 8 MG/250ML KIT 250 ML IV SCH (08:07)
[2021-06-30] MEDS: ASPirin 81 mg TAB PO SCH (10:00)
[2021-06-30] MEDS: DexAMETHasone SOD PHOS 10MG/1ML VIAL INJ IV SCH (11:06)
[2021-06-30] MEDS: FUROSEMIDE 100 MG/10ML VIAL IV SCH (11:07)
[2021-06-30] MEDS: PANTOPRAZOLE 40 MG/10 ML VIAL INJ IV SCH (11:07)
[2021-06-30] MEDS: AZITHROMYCIN 500MG/ 250ML 250 ML IV SCH (11:07)
[2021-06-30] MEDS: ZINC SULFATE 220mg CAP or TAB PO SCH (11:08)
[2021-06-30] MEDS: CHOLECALCIFEROL (VITD3) 2,000 UNIT CAP/TAB PO SCH (11:09)
[2021-06-30] MEDS: AMIODARONE HCL 200 MG TAB PO SCH ×2 (11:09→22:00)
[2021-06-30] MEDS: MIDAZOLAM DRIP 50 mg/50mL 50 ML IV SCH (11:13)
[2021-06-30] MEDS: PROPOFOL 100 ML IV SCH (18:45)
[2021-07-01] VITALS (97 sets, daily range): BP systolic 104–140; BP diastolic 58–91
[2021-07-01] MEDS: CALCIUM ACETATE 667 MG CAP GT SCH ×4 (01:46→22:29)
[2021-07-01] MEDS: ALBUTEROL SULF 2.5 MG/0.5ML(0.5%) NEB SOLN NEB SCH ×5 (02:23→18:16)
[2021-07-01] MEDS: IPRATROPIUM BROM 0.5 MG/2.5ML INH SOL NEB SCH ×4 (02:23→18:16)
[2021-07-01] MEDS: HEPARIN DRIP/D5W 100UNITS/ML 250 ML IV SCH (03:00)
[2021-07-01] MEDS: LINEZOLID 600MG/300ML 300 ML IV SCH ×2 (04:00→16:19)
[2021-07-01] MEDS: SODIUM ZIRCONIUM CYCL 10 GM PAK PO SCH ×3 (06:00→22:28)
[2021-07-01] MEDS: PIPERACILLIN-TAZOB 2.25GM 50 ML IV SCH ×5 (06:00→18:28)
[2021-07-01 07:19] LABS: Basophils # (auto) 0 10 ^3/uL (0-0.2); Basophils % (auto) 0.2 % (0.0-2.0); Eosinophils # (auto) 0 10 ^3/uL (0-0.8); Hematocrit 30.1 % (41.0-53.0); Hemoglobin 10.1 g/dL (13.5-17.5); Lymphocytes # (auto) 1.6 10 ^3/uL (0.4-5.4); Lymphocytes % (auto) 10.2 % (10.0-50.0); Mean Corpuscular Hemoglobin 27.1 pg (28.0-32.0); Mean Corpuscular Hgb Conc. 33.7 g/dL (32.0-36.0); Mean Corpuscular Volume 80.4 fL (80.0-100.0); Monocytes # (auto) 0.4 10 ^3/uL (0-1.3); Monocytes % (auto) 2.8 % (0.0-12.0); Neutrophils # (auto) 13.2 10 ^3/uL (1.6-8.6); Neutrophils % (auto) 86.8 % (37.0-80.0); Nucleated Red Blood Cells % 1.8 %; Red Blood Cells 3.75 10^6/uL (4.5-5.90); Red Cell Distribution Width 14.8 % (11.8-14.3); White Blood Cell 15.3 10^3/uL (4.4-10.8)
[2021-07-01 07:25] LABS: INR 1.49 (0.9-1.15); Partial Thromboplastin Time 65.1 sec (23.6-33.0)
[2021-07-01 08:22] LABS: BUN/Creatinine Ratio 12.5; Calcium 6.1 mg/dL (8.5-10.1)
[2021-07-01] MEDS: NOREPINEPHRINE 8 MG/250ML KIT 250 ML IV SCH (08:50)
[2021-07-01 09:01] LABS: Potassium 5.8 mmol/L (3.5-5.1)
[2021-07-01] MEDS: DexAMETHasone SOD PHOS 10MG/1ML VIAL INJ IV SCH (10:10)
[2021-07-01] MEDS: ASPirin 81 mg TAB PO SCH (10:11)
[2021-07-01] MEDS: ZINC SULFATE 220mg CAP or TAB PO SCH (10:11)
[2021-07-01] MEDS: PANTOPRAZOLE 40 MG/10 ML VIAL INJ IV SCH (10:11)
[2021-07-01] MEDS: AZITHROMYCIN 500MG/ 250ML 250 ML IV SCH (10:11)
[2021-07-01] MEDS: FUROSEMIDE 100 MG/10ML VIAL IV SCH (10:11)
[2021-07-01] MEDS: CHOLECALCIFEROL (VITD3) 2,000 UNIT CAP/TAB PO SCH (10:12)
[2021-07-01] MEDS: AMIODARONE HCL 200 MG TAB PO SCH ×2 (10:12→22:29)
[2021-07-01] MEDS ORDERED: CALCIUM GLUC 1,000mg/50ml-NS 50 ML IV ONE (10:45)
[2021-07-01] MEDS ORDERED: BUMETANIDE 2.5mg/10ml (0.25 mg/ml) INJ IV ONE (10:45)
[2021-07-01] MEDS ORDERED: InsuLIN REG 1unit/0.01ml Soln (100units/ml) IV ONE (10:45)
[2021-07-01] MEDS ORDERED: DEXTROSE (50%) 50ML SYRG IV ONE (10:45)
[2021-07-01] MEDS ORDERED: SODIUM BICARBONATE 8.4 % INJ 50ML VIAL IV ONE (10:45)
[2021-07-01] MEDS: PROPOFOL 100 ML IV SCH (18:45)
[2021-07-01] MEDS: MIDAZOLAM DRIP 50 mg/50mL 50 ML IV SCH (20:43)
[2021-07-02] VITALS (102 sets, daily range): BP systolic 82–146; BP diastolic 40–99
[2021-07-02] MEDS: NOREPINEPHRINE 8 MG/250ML KIT 250 ML IV SCH (00:45)
[2021-07-02] MEDS: fentaNYL Drip 2500mCg/250mlNS 250 ML IV SCH ×2 (01:00→12:40)
[2021-07-02] MEDS: ALBUTEROL SULF 2.5 MG/0.5ML(0.5%) NEB SOLN NEB SCH ×4 (02:33→18:17)
[2021-07-02] MEDS: IPRATROPIUM BROM 0.5 MG/2.5ML INH SOL NEB SCH ×4 (02:34→18:17)
[2021-07-02] MEDS: LINEZOLID 600MG/300ML 300 ML IV SCH ×2 (04:30→15:53)
[2021-07-02 04:49] LABS: Hematocrit 28.6 % (41.0-53.0); Hemoglobin 9.6 g/dL (13.5-17.5)
[2021-07-02 05:50] LABS: Albumin 1.5 g/dL (3.4-5.0); BUN/Creatinine Ratio 13.3; Calcium 6.2 mg/dL (8.5-10.1); Total Protein 4.7 g/dL (6.4-8.2)
[2021-07-02] MEDS: CALCIUM ACETATE 667 MG CAP GT SCH ×3 (06:13→22:11)
[2021-07-02] MEDS: SODIUM ZIRCONIUM CYCL 10 GM PAK PO SCH ×3 (06:13→22:12)
[2021-07-02 06:17] LABS: Potassium 6.4 mmol/L (3.5-5.1)
[2021-07-02] MEDS ORDERED: CALCIUM GLUC 1,000mg/50ml-NS 50 ML IV ONE (07:00)
[2021-07-02] MEDS ORDERED: SODIUM CHL 0.9% 1000 ML BAG XX ONE (07:00)
[2021-07-02] MEDS: MIDAZOLAM DRIP 50 mg/50mL 50 ML IV SCH ×3 (07:51→18:57)
[2021-07-02] MEDS: PIPERACILLIN-TAZOB 2.25GM 50 ML IV SCH ×3 (07:56→22:07)
[2021-07-02] MEDS ORDERED: ALBUMIN 25% 200 ML IV ONE (08:33)
[2021-07-02] MEDS ORDERED: ALBUMIN 25% 100 ML IV ONE (08:45)
[2021-07-02] MEDS: ASPirin 81 mg TAB PO SCH (10:00)
[2021-07-02] MEDS: AZITHROMYCIN 500MG/ 250ML 250 ML IV SCH (10:30)
[2021-07-02] MEDS: CHOLECALCIFEROL (VITD3) 2,000 UNIT CAP/TAB PO SCH (11:00)
[2021-07-02] MEDS: FUROSEMIDE 100 MG/10ML VIAL IV SCH (11:00)
[2021-07-02] MEDS: AMIODARONE HCL 200 MG TAB PO SCH ×2 (11:00→22:12)
[2021-07-02] MEDS: DexAMETHasone SOD PHOS 10MG/1ML VIAL INJ IV SCH (11:00)
[2021-07-02] MEDS: PANTOPRAZOLE 40 MG/10 ML VIAL INJ IV SCH (11:00)
[2021-07-02] MEDS: ZINC SULFATE 220mg CAP or TAB PO SCH (11:00)
[2021-07-02 12:55] LABS: Hematocrit 21.7 % (41.0-53.0); Hemoglobin 7.2 g/dL (13.5-17.5)
[2021-07-02 13:03] LABS: BUN/Creatinine Ratio 12.7; Calcium 6.9 mg/dL (8.5-10.1)
[2021-07-02] MEDS: PROPOFOL 100 ML IV SCH (18:45)
[2021-07-02] MEDS ORDERED: EPOETIN ALFA-EPBX 10,000 UNIT/1ML VIAL SC ONE (21:00)
[2021-07-03] VITALS (82 sets, daily range): BP systolic 95–145; BP diastolic 59–86
[2021-07-03] MEDS: fentaNYL Drip 2500mCg/250mlNS 250 ML IV SCH (00:26)
[2021-07-03] MEDS: NOREPINEPHRINE 8 MG/250ML KIT 250 ML IV SCH (00:45)
[2021-07-03] MEDS: PIPERACILLIN-TAZOB 2.25GM 50 ML IV SCH ×4 (01:58→20:00)
[2021-07-03] MEDS: IPRATROPIUM BROM 0.5 MG/2.5ML INH SOL NEB SCH ×4 (02:25→22:42)
[2021-07-03] MEDS: ALBUTEROL SULF 2.5 MG/0.5ML(0.5%) NEB SOLN NEB SCH ×4 (02:25→22:42)
[2021-07-03] MEDS: LINEZOLID 600MG/300ML 300 ML IV SCH ×2 (04:00→16:24)
[2021-07-03 04:35] LABS: Eosinophils # (auto) 0 10 ^3/uL (0-0.8); Hemoglobin 8.2 g/dL (13.5-17.5); Lymphocytes # (auto) 0.4 10 ^3/uL (0.4-5.4); Monocytes # (auto) 0.9 10 ^3/uL (0-1.3); Red Blood Cells 2.99 10^6/uL (4.5-5.90)
[2021-07-03 04:41] LABS: Basophils # (auto) 0 10 ^3/uL (0-0.2); Basophils % (auto) 0.2 % (0.0-2.0); Hematocrit 24.6 % (41.0-53.0); Lymphocytes % (auto) 2.9 % (10.0-50.0); Mean Corpuscular Hemoglobin 27.6 pg (28.0-32.0); Mean Corpuscular Hgb Conc. 33.6 g/dL (32.0-36.0); Mean Corpuscular Volume 82.2 fL (80.0-100.0); Monocytes % (auto) 7.5 % (0.0-12.0); Neutrophils # (auto) 11.2 10 ^3/uL (1.6-8.6); Neutrophils % (auto) 89.4 % (37.0-80.0); Nucleated Red Blood Cells % 1.9 %; Red Cell Distribution Width 16.3 % (11.8-14.3); White Blood Cell 12.5 10^3/uL (4.4-10.8)
[2021-07-03 05:07] LABS: Albumin 2.4 g/dL (3.4-5.0); BUN/Creatinine Ratio 13.9; Bilirubin, Total 5.2 mg/dL (0.2-1.0); Calcium 6.3 mg/dL (8.5-10.1); Total Protein 4.8 g/dL (6.4-8.2)
[2021-07-03] MEDS: SODIUM ZIRCONIUM CYCL 10 GM PAK PO SCH ×3 (06:35→22:02)
[2021-07-03] MEDS: CALCIUM ACETATE 667 MG CAP GT SCH ×3 (06:36→22:02)
[2021-07-03] MEDS ORDERED: DEXTROSE (50%) 50ML SYRG IV ONE (07:30)
[2021-07-03] MEDS ORDERED: SODIUM CHL 0.9% 1000 ML BAG XX ONE (07:30)
[2021-07-03] MEDS ORDERED: InsuLIN REG 1unit/0.01ml Soln (100units/ml) IV ONE (07:30)
[2021-07-03] MEDS ORDERED: CALCIUM GLUC 1,000mg/50ml-NS 50 ML IV ONE (07:30)
[2021-07-03] MEDS ORDERED: ALBUMIN 25% 200 ML IV ONE (09:40)
[2021-07-03] MEDS: ASPirin 81 mg TAB PO SCH (10:00)
[2021-07-03] MEDS: PANTOPRAZOLE 40 MG/10 ML VIAL INJ IV SCH (10:01)
[2021-07-03] MEDS: DexAMETHasone SOD PHOS 10MG/1ML VIAL INJ IV SCH (10:02)
[2021-07-03] MEDS: FUROSEMIDE 100 MG/10ML VIAL IV SCH (10:02)
[2021-07-03] MEDS: ZINC SULFATE 220mg CAP or TAB PO SCH (10:02)
[2021-07-03] MEDS: CHOLECALCIFEROL (VITD3) 2,000 UNIT CAP/TAB PO SCH (10:03)
[2021-07-03] MEDS: AZITHROMYCIN 500MG/ 250ML 250 ML IV SCH (10:03)
[2021-07-03] MEDS: AMIODARONE HCL 200 MG TAB PO SCH ×2 (10:03→22:03)
[2021-07-03] MEDS: ALBUMIN 25% 100 ML IV SCH ×2 (10:15→11:15)
[2021-07-03] MEDS: PROPOFOL 100 ML IV SCH (19:30)
[2021-07-03] MEDS: MIDAZOLAM DRIP 50 mg/50mL 50 ML IV SCH (19:48)
[2021-07-03] MEDS ORDERED: EPOETIN ALFA-EPBX 10,000 UNIT/1ML VIAL SC ONE (21:00)
[2021-07-04] VITALS (76 sets, daily range): BP systolic 100–141; BP diastolic 61–91
[2021-07-04] MEDS: NOREPINEPHRINE 8 MG/250ML KIT 250 ML IV SCH (00:17)
[2021-07-04] MEDS: fentaNYL Drip 2500mCg/250mlNS 250 ML IV SCH ×3 (01:06→22:50)
[2021-07-04] MEDS: MIDAZOLAM DRIP 50 mg/50mL 50 ML IV SCH ×5 (01:26→23:51)
[2021-07-04] MEDS: PIPERACILLIN-TAZOB 2.25GM 50 ML IV SCH ×4 (02:07→20:00)
[2021-07-04] MEDS: LINEZOLID 600MG/300ML 300 ML IV SCH ×2 (04:00→16:05)
[2021-07-04 06:04] LABS: Hematocrit 20.7 % (41.0-53.0); Hemoglobin 7.2 g/dL (13.5-17.5)
[2021-07-04] MEDS: IPRATROPIUM BROM 0.5 MG/2.5ML INH SOL NEB SCH ×3 (06:15→22:45)
[2021-07-04] MEDS: ALBUTEROL SULF 2.5 MG/0.5ML(0.5%) NEB SOLN NEB SCH ×3 (06:15→22:45)
[2021-07-04] MEDS: CALCIUM ACETATE 667 MG CAP GT SCH ×3 (06:23→22:06)
[2021-07-04] MEDS: SODIUM ZIRCONIUM CYCL 10 GM PAK PO SCH ×3 (06:23→22:07)
[2021-07-04 06:32] LABS: Calcium 6.6 mg/dL (8.5-10.1); Potassium 4.9 mmol/L (3.5-5.1)
[2021-07-04 07:46] LABS: BUN/Creatinine Ratio 13.9
[2021-07-04] MEDS: ASPirin 81 mg TAB PO SCH (10:00)
[2021-07-04] MEDS: FUROSEMIDE 100 MG/10ML VIAL IV SCH (10:11)
[2021-07-04] MEDS: ZINC SULFATE 220mg CAP or TAB PO SCH (10:11)
[2021-07-04] MEDS: PANTOPRAZOLE 40 MG/10 ML VIAL INJ IV SCH (10:11)
[2021-07-04] MEDS: AMIODARONE HCL 200 MG TAB PO SCH ×2 (10:11→22:07)
[2021-07-04] MEDS: CHOLECALCIFEROL (VITD3) 2,000 UNIT CAP/TAB PO SCH (10:12)
[2021-07-04] MEDS: AZITHROMYCIN 500MG/ 250ML 250 ML IV SCH (10:12)
[2021-07-04] MEDS: PROPOFOL 100 ML IV SCH (20:35)
[2021-07-05] VITALS (58 sets, daily range): BP systolic 91–150; BP diastolic 55–92
[2021-07-05] MEDS: NOREPINEPHRINE 8 MG/250ML KIT 250 ML IV SCH ×2 (00:45→21:43)
[2021-07-05] MEDS: PIPERACILLIN-TAZOB 2.25GM 50 ML IV SCH ×4 (02:13→20:49)
[2021-07-05] MEDS: LINEZOLID 600MG/300ML 300 ML IV SCH ×2 (04:13→16:00)
[2021-07-05 05:06] LABS: Albumin 2.3 g/dL (3.4-5.0); Bilirubin, Direct 1.9 mg/dL (0-0.2); Bilirubin, Total 2.9 mg/dL (0.2-1.0); Total Protein 4.6 g/dL (6.4-8.2)
[2021-07-05] MEDS: MIDAZOLAM DRIP 50 mg/50mL 50 ML IV SCH ×3 (05:34→20:48)
[2021-07-05] MEDS: CALCIUM ACETATE 667 MG CAP GT SCH ×3 (06:07→21:39)
[2021-07-05] MEDS: SODIUM ZIRCONIUM CYCL 10 GM PAK PO SCH ×3 (06:07→21:39)
[2021-07-05] MEDS: IPRATROPIUM BROM 0.5 MG/2.5ML INH SOL NEB SCH ×3 (06:31→18:52)
[2021-07-05] MEDS: ALBUTEROL SULF 2.5 MG/0.5ML(0.5%) NEB SOLN NEB SCH ×3 (06:31→18:52)
[2021-07-05] MEDS: CHOLECALCIFEROL (VITD3) 2,000 UNIT CAP/TAB PO SCH (09:21)
[2021-07-05] MEDS: ZINC SULFATE 220mg CAP or TAB PO SCH (09:22)
[2021-07-05] MEDS: FUROSEMIDE 100 MG/10ML VIAL IV SCH (09:23)
[2021-07-05] MEDS: ASPirin 81 mg TAB PO SCH (09:24)
[2021-07-05] MEDS: PANTOPRAZOLE 40 MG/10 ML VIAL INJ IV SCH (09:24)
[2021-07-05] MEDS: AMIODARONE HCL 200 MG TAB PO SCH ×2 (09:25→21:38)
[2021-07-05] MEDS: AZITHROMYCIN 500MG/ 250ML 250 ML IV SCH (09:26)
[2021-07-05] MEDS: fentaNYL Drip 2500mCg/250mlNS 250 ML IV SCH ×2 (10:54→23:04)
[2021-07-05 14:49] LABS: BUN/Creatinine Ratio 15.1; Potassium 5.1 mmol/L (3.5-5.1)
[2021-07-05 15:49] LABS: Calcium 5.8 mg/dL (8.5-10.1)
[2021-07-06] VITALS (74 sets, daily range): BP systolic 60–117; BP diastolic 10–68
[2021-07-06] MEDS: PIPERACILLIN-TAZOB 2.25GM 50 ML IV SCH ×4 (01:30→20:44)
[2021-07-06] MEDS: MIDAZOLAM DRIP 50 mg/50mL 50 ML IV SCH ×2 (01:31→20:41)
[2021-07-06] MEDS: NOREPINEPHRINE 8 MG/250ML KIT 250 ML IV SCH ×2 (02:00→10:46)
[2021-07-06] MEDS: LINEZOLID 600MG/300ML 300 ML IV SCH ×2 (03:40→16:00)
[2021-07-06 04:38] LABS: BUN/Creatinine Ratio 15.7
[2021-07-06 05:06] LABS: Calcium 5.4 mg/dL (8.5-10.1); Potassium 6.1 mmol/L (3.5-5.1)
[2021-07-06 05:17] LABS: Basophils # (auto) 0.1 10 ^3/uL (0-0.2); Basophils % (auto) 0.4 % (0.0-2.0); Eosinophils # (auto) 0.1 10 ^3/uL (0-0.8)
[2021-07-06 05:18] LABS: Eosinophils % (auto) 0.3 % (0.0-7.0); Hematocrit 19.4 % (41.0-53.0); Lymphocytes # (auto) 0.8 10 ^3/uL (0.4-5.4); Lymphocytes % (auto) 3.5 % (10.0-50.0); Mean Corpuscular Hemoglobin 27.6 pg (28.0-32.0); Mean Corpuscular Hgb Conc. 31.9 g/dL (32.0-36.0); Mean Corpuscular Volume 86.3 fL (80.0-100.0); Monocytes # (auto) 1.4 10 ^3/uL (0-1.3); Neutrophils % (auto) 89.8 % (37.0-80.0); Nucleated Red Blood Cells % 1.4 %; Red Blood Cells 2.25 10^6/uL (4.5-5.90); Red Cell Distribution Width 16.2 % (11.8-14.3); White Blood Cell 23.3 10^3/uL (4.4-10.8)
[2021-07-06 05:20] LABS: Hemoglobin 6.2 g/dL (13.5-17.5)
[2021-07-06] MEDS: CALCIUM ACETATE 667 MG CAP GT SCH ×2 (05:42→14:14)
[2021-07-06] MEDS: SODIUM ZIRCONIUM CYCL 10 GM PAK PO SCH ×2 (05:42→14:14)
[2021-07-06] MEDS: ALBUTEROL SULF 2.5 MG/0.5ML(0.5%) NEB SOLN NEB SCH ×3 (06:23→18:33)
[2021-07-06] MEDS: IPRATROPIUM BROM 0.5 MG/2.5ML INH SOL NEB SCH ×3 (06:23→18:33)
[2021-07-06] MEDS: PANTOPRAZOLE 40 MG/10 ML VIAL INJ IV SCH (09:45)
[2021-07-06] MEDS: CHOLECALCIFEROL (VITD3) 2,000 UNIT CAP/TAB PO SCH (09:45)
[2021-07-06] MEDS: ZINC SULFATE 220mg CAP or TAB PO SCH (09:45)
[2021-07-06] MEDS: AMIODARONE HCL 200 MG TAB PO SCH (09:45)
[2021-07-06] MEDS: FUROSEMIDE 100 MG/10ML VIAL IV SCH (09:46)
[2021-07-06] MEDS: AZITHROMYCIN 500MG/ 250ML 250 ML IV SCH (09:46)
[2021-07-06] MEDS: ASPirin 81 mg TAB PO SCH (10:00)
[2021-07-06] MEDS: fentaNYL Drip 2500mCg/250mlNS 250 ML IV SCH (10:44)
[2021-07-06] MEDS: PROPOFOL 100 ML IV SCH ×2 (20:46→20:47)
== END 2021-07-07 02:51 | DRG 720 ==
LOC: ER 12:35 → EDBD 12:35 → TELE 16:47 → ICU WEST 06-22 04:12
PROVIDERS: ADMIT Internal Medicine; ATTEND Family Medicine
PROC: 5A1955Z Respiratory Ventilation, Greater than 96 Consecutive Hours (ICD-10-PCS; principal; 2021-06-21)
PROC: 0BH17EZ Insertion of Endotracheal Airway into Trachea, Via Natural or Artificial Opening (ICD-10-PCS; 2021-06-21)
PROC: 5A09357 Assistance with Respiratory Ventilation, Less than 24 Consecutive Hours, Continuous Positive Airway Pressure (ICD-10-PCS; 2021-06-21)
PROC: 05HN33Z Insertion of Infusion Device into Left Internal Jugular Vein, Percutaneous Approach (ICD-10-PCS; 2021-06-22)
PROC: XW033H5 Introduction of Tocilizumab into Peripheral Vein, Percutaneous Approach, New Technology Group 5 (ICD-10-PCS; 2021-06-23)
PROC: 06HM33Z Insertion of Infusion Device into Right Femoral Vein, Percutaneous Approach (ICD-10-PCS; 2021-06-24)
PROC: 5A1D70Z Performance of Urinary Filtration, Intermittent, Less than 6 Hours Per Day (ICD-10-PCS; 2021-06-25)
PROC: 5A1D70Z Performance of Urinary Filtration, Intermittent, Less than 6 Hours Per Day (ICD-10-PCS; 2021-06-26)
PROC: 5A1D70Z Performance of Urinary Filtration, Intermittent, Less than 6 Hours Per Day (ICD-10-PCS; 2021-06-28)
PROC: 5A1D70Z Performance of Urinary Filtration, Intermittent, Less than 6 Hours Per Day (ICD-10-PCS; 2021-06-30)
PROC: 30233N1 Transfusion of Nonautologous Red Blood Cells into Peripheral Vein, Percutaneous Approach (ICD-10-PCS; 2021-07-02)
PROC: 5A1D70Z Performance of Urinary Filtration, Intermittent, Less than 6 Hours Per Day (ICD-10-PCS; 2021-07-02)
PROC: 5A1D70Z Performance of Urinary Filtration, Intermittent, Less than 6 Hours Per Day (ICD-10-PCS; 2021-07-03)
DX: A41.9 Sepsis, unspecified organism (principal); K72.00 Acute and subacute hepatic failure without coma; J12.82 Pneumonia due to coronavirus disease 2019; N17.0 Acute kidney failure with tubular necrosis; U07.1 COVID-19; R65.21 Severe sepsis with septic shock; D62 Acute posthemorrhagic anemia; D63.1 Anemia in chronic kidney disease; I21.4 Non-ST elevation (NSTEMI) myocardial infarction; E87.5 Hyperkalemia; I25.10 Atherosclerotic heart disease of native coronary artery without angina pectoris; N18.9 Chronic kidney disease, unspecified; N39.0 Urinary tract infection, site not specified; F15.10 Other stimulant abuse, uncomplicated; K92.2 Gastrointestinal hemorrhage, unspecified; Z51.5 Encounter for palliative care; Z66 Do not resuscitate; R94.5 Abnormal results of liver function studies; R34 Anuria and oliguria; F17.210 Nicotine dependence, cigarettes, uncomplicated; I12.9 Hypertensive chronic kidney disease with stage 1 through stage 4 chronic kidney disease, or unspecified chronic kidney disease; J80 Acute respiratory distress syndrome; Z90.2 Acquired absence of lung [part of]; F19.10 Other psychoactive substance abuse, uncomplicated; I82.432 Acute embolism and thrombosis of left popliteal vein; I27.20 Pulmonary hypertension, unspecified
CPT/HCPCS: 31500; 36415; 36600; 71045; 74176; 76700; 76705; 80048; 80053; 80061; 80074; 80076; 80307; 81001; 82150; 82270; 82550; 82728; 82805; 82962; 83605; 83615; 83690; 83735; 83880; 84100; 84132; 84443; 84484; 85007; 85014; 85018; 85025; 85027; 85379; 85610; 85652; 85730; 86141; 86850; 86900; 86901; 86920; 87040; 87070; 87081; 87086; 87205; 87426; 90935; 93005; 93306; 93970; 94002; 94003; 94640; 94660; 96365; 96375; 99291; A4618; C9113; G0378; J0330; J1100; J1642; J1815; J2250; J2543; J2704; J7060; P9047